=== PATIENT | male | born 1950 | race Caucasian/White ===

== ENCOUNTER 2020-12-14 12:14 | Inpatient (IN) | payer OTHER ==
[~2020-12-14] VITALS: Ht 190.5 cm; Wt 124.7 kg
[2020-12-14 13:36] LABS: HEMOGLOBIN 17.1 gm/dl (14.0-17.5); RED BLOOD COUNT 5.29 M/UL (4.20-5.50); WHITE BLOOD COUNT 4.8 K/UL (4.5-11.0)
[2020-12-14 14:05] LABS: BUN/CREATININE RATIO 20 (0-10)
[2020-12-14] MEDS ORDERED: NEXIUM20 MG PO (17:24)
[2020-12-15 05:44] LABS: HEMOGLOBIN 15.3 gm/dl (14.0-17.5); WHITE BLOOD COUNT 4.3 K/UL (4.5-11.0)
[2020-12-15 05:45] LABS: RED BLOOD COUNT 4.73 M/UL (4.20-5.50)
[2020-12-15 08:39] LABS: BUN/CREATININE RATIO 26 (0-10)
[2020-12-16 07:05] LABS: HEMOGLOBIN 15.1 gm/dl (14.0-17.5); RED BLOOD COUNT 4.64 M/UL (4.20-5.50)
[2020-12-16 07:12] LABS: WHITE BLOOD COUNT 6.4 K/UL (4.5-11.0)
[2020-12-16 07:18] LABS: BUN/CREATININE RATIO 28 (0-10)
[2020-12-17 04:38] LABS: HEMOGLOBIN 14.8 gm/dl (14.0-17.5); RED BLOOD COUNT 4.59 M/UL (4.20-5.50); WHITE BLOOD COUNT 7.6 K/UL (4.5-11.0)
[2020-12-17 05:31] LABS: BUN/CREATININE RATIO 25 (0-10)
--- NOTE | 2020-12-17 05:54 | NUR ---
called pharm spoke with denise angela 21.6 ok to hang since borderline.
[2020-12-18 04:24] LABS: HEMOGLOBIN 15.2 gm/dl (14.0-17.5); RED BLOOD COUNT 4.71 M/UL (4.20-5.50); WHITE BLOOD COUNT 7.6 K/UL (4.5-11.0)
[2020-12-18 05:27] LABS: BUN/CREATININE RATIO 22 (0-10)
[2020-12-19 05:37] LABS: HEMOGLOBIN 14.9 gm/dl (14.0-17.5); RED BLOOD COUNT 4.78 M/UL (4.20-5.50); WHITE BLOOD COUNT 10.7 K/UL (4.5-11.0)
[2020-12-19 05:56] LABS: BUN/CREATININE RATIO 20 (0-10)
--- NOTE | 2020-12-19 15:13 | NUR ---
1500 O2 Sat 85% on room air.
[2020-12-19] MEDS ORDERED: ELIQUIS 2.5 MG2.5 MG PO (17:34)
[2020-12-19] MEDS ORDERED: IPRAT-ALBUT 0.5-3 ML NEB (17:34)
[2020-12-19] MEDS ORDERED: AMLODIPINE BESYL5 MG PO (17:34)
[2020-12-19] MEDS ORDERED: DECADRON6 MG PO (17:36)
[2020-12-19] MEDS ORDERED: LEVOFLOXACIN750 MG PO (17:36)
[2020-12-19] MEDS ORDERED: LOPRESSOR 25 MG25 MG PO (18:44)
== END 2020-12-19 20:20 | disposition home or self-care (01) | DRG 177 ==
LOC: ER1 12:14 → CDU 15:57 → MED SURG 4 15:57
PROVIDERS: Nurse Practitioner; ADMIT Internal Medicine
PROC: XW033E5 Introduction of Remdesivir Anti-infective into Peripheral Vein, Percutaneous Approach, New Technology Group 5 (ICD-10-PCS; principal; 2020-12-14)
PROC: 3E0333Z Introduction of Anti-inflammatory into Peripheral Vein, Percutaneous Approach (ICD-10-PCS; 2020-12-14)
PROC: 8E0ZXY6 Isolation (ICD-10-PCS; 2020-12-14)
PROC: B24BZZZ Ultrasonography of Heart with Aorta (ICD-10-PCS; 2020-12-15)
DX: U07.1 COVID-19 (principal); J12.82 Pneumonia due to coronavirus disease 2019; J96.01 Acute respiratory failure with hypoxia; J15.9 Unspecified bacterial pneumonia; I21.A1 Myocardial infarction type 2; N17.9 Acute kidney failure, unspecified; E87.1 Hypo-osmolality and hyponatremia; I07.1 Rheumatic tricuspid insufficiency; D69.6 Thrombocytopenia, unspecified; K21.9 Gastro-esophageal reflux disease without esophagitis; Z79.01 Long term (current) use of anticoagulants; Z88.0 Allergy status to penicillin; Z82.49 Family history of ischemic heart disease and other diseases of the circulatory system; Z79.899 Other long term (current) drug therapy
CPT/HCPCS: ECHO; 36415; 36600; 71045; 80053; 80061; 80202; 82550; 82553; 82728; 82803; 83036; 84439; 84443; 84484; 85025; 85652; 86140; 87081; 93005; 93306; 94640; 94664; 94760; 96374; 96375; 99285; J0696; J1100; J1650; J1956; J2185; J3370; J7030; J7070; U0002